=== PATIENT | male | born 1955 ===

== ENCOUNTER → 2021-10-23 | Day surgery (SDC) | payer MEDICARE, OTHER ==
[~2021-10-23] VITALS: Ht 157.5 cm; Wt 78.0 kg
[~2021-10-23] MED LIST: AMARYL4 MG PO; ASPIRIN EC81 MG PO; BUMEX1 MG PO; CLONIDINE HCL0.3 MG PO; COZAAR100 MG PO; HCTZ12.5 MG PO; MAG OXIDE PO; METFORMIN HCL1000 M1 PO; NORVASC5 MG PO; POTASSIUM CHLO20 ME1 PO; PRAVASTATIN SOD40 MG PO; PRILOSEC20 MG PO; TOPROL XL 50 MG50 MG PO; TRADJENTA5 MG PO; VIT B12 SL; VIT D2 PO
[2021-10-23 11:05] LABS: BASOPHIL 0.2 % (0-2); EOSINOPHIL 0.3 % (0-7); HCT 40.9 % (42.0-52.0); HGB 14.3 g/dl (13.2-18.0); LYMPHOCYTE 18.2 % (15-48); MCH 31.2 pg (25.0-31.0); MCV 89.3 fL (78.0-100.0); MPV 10.6 fL (6.0-9.5); NEUTROPHIL 74.6 % (41-80); NRBC 0; PLT 335 K/uL (150-400); RBC 4.58 M/uL (4.70-6.00); RDW 11.9 % (11.5-14.0)
[2021-10-23 11:23] LABS: INR 0.97 (0.9-1.2); PROTHROMBIN TIME 12.3 SECONDS (11.8-13.4); PTT 26.7 SECONDS (24.4-34.7)
== END | disposition home or self-care (01) ==
LOC: FAS 09:21
PROVIDERS: Oral & Maxillofacial Surgery
DX: K02.9 Dental caries, unspecified (principal); E11.9 Type 2 diabetes mellitus without complications; I25.10 Atherosclerotic heart disease of native coronary artery without angina pectoris; I50.9 Heart failure, unspecified; M19.90 Unspecified osteoarthritis, unspecified site; F84.0 Autistic disorder; Z88.6 Allergy status to analgesic agent; I51.7 Cardiomegaly
CPT/HCPCS: 36415; 71045; 85025; 85610; 85730; 93005; J1885; J2405; J2704; J7120